=== PATIENT | female | born 1995 | race Caucasian/White ===

== ENCOUNTER 2016-03-25 16:17 | Emergency (ER) | payer OTHER ==
[2016-03-25 16:29] VITALS: RESP 18
--- NOTE | 2016-03-25 16:53 | ED ---
General Adult HPI - General Chief complaint: Altered Mental Status Stated complaint: Poss. Uti Time Seen by Provider: 03/25/16 16:36 Source: patient, RN notes reviewed Mode of arrival: wheelchair Limitations: no limitations - History of Present Illness Initial comments: 20-year-old female presents emergency Department from [facility] for confusion. Patient had a bout of confusion this morning that lasted approximately one hour. She states that she knew she was confused and disheveled. Patient states that they told her she had some bizarre behavior. Patient states that she no she was not dressed appropriately that she states that she had one sandal on, was not dressed well. Patient states that she also was slightly confused on what was happening. She states that she believes this is just from her withdrawal. Patient is on day 4 of rehab at [facility]. Patient states that she has no confusion now. She states she does feel improved. Patient denies fever, chills, headache, dizziness, chest pain, shortness breath, dysuria, hematuria. Patient states she is withdrawing from heroin primarily and some benzodiazepines. - Related Data Home Medications Medication Instructions Recorded Confirmed Acetaminophen Tab [Tylenol Tab] 650 mg PO Q4H PRN 03/25/16 03/25/16 Buprenorphine HCl [Subutex] 4 mg SL Q6H 03/25/16 03/25/16 [id number] 1 tab PO TID PRN 03/25/16 03/25/16 Chlorpheniramine Maleate 4 mg PO Q4H PRN 03/25/16 03/25/16 [Chlor-Trimeton] Ibuprofen [Motrin] 600 mg PO Q6H PRN 03/25/16 03/25/16 Mirtazapine [Remeron] 15 mg PO HS 03/25/16 03/25/16 Multivitamins, Thera [Multivitamin] 1 tab PO DAILY 03/25/16 03/25/16 Ondansetron HCl [Zofran] 8 mg PO Q6H PRN 03/25/16 03/25/16 Ondansetron [Zofran] 4 mg IM Q6H PRN 03/25/16 03/25/16 Propranolol [Inderal] 40 mg PO BID 03/25/16 03/25/16 Thiamine [Vitamin B-1] 100 mg PO DAILY 03/25/16 03/25/16 busPIRone HCl [Buspar] 10 mg PO TID PRN 03/25/16 03/25/16 cloNIDine HCL [Catapres] 0.1 mg PO Q4H 03/25/16 03/25/16 Allergies Allergy/AdvReac Type Severity Reaction Status Date / Time No Known Allergies Allergy Verified 03/25/16 16:49 Review of Systems ROS Statement: Those systems with pertinent positive or pertinent negative responses have been documented in the HPI. ROS Other: All systems not noted in ROS Statement are negative. Past Medical History Past Medical History: Asthma Additional Past Medical History / Comment(s): stopped using heroin 5 days ago History of Any Multi-Drug Resistant Organisms: None Reported Past Surgical History: No Surgical Hx Reported Smoking Status: Current every day smoker Past Alcohol Use History: None Reported, Rare Past Drug Use History: Heroin General Exam Limitations: no limitations General appearance: alert, in no apparent distress Head exam: Present: atraumatic, normocephalic, normal inspection Eye exam: Present: normal appearance, PERRL, EOMI. Absent: scleral icterus, conjunctival injection, periorbital swelling ENT exam: Present: normal exam, normal oropharynx, mucous membranes moist, TM's normal bilaterally, normal external ear exam Neck exam: Present: normal inspection, full ROM. Absent: tenderness, meningismus, lymphadenopathy Respiratory exam: Present: normal lung sounds bilaterally. Absent: respiratory distress, wheezes, rales, rhonchi, stridor Cardiovascular Exam: Present: regular rate, normal rhythm, normal heart sounds. Absent: systolic murmur, diastolic murmur, rubs, gallop, clicks GI/Abdominal exam: Present: soft, normal bowel sounds. Absent: distended, tenderness, guarding, rebound, rigid Neurological exam: Present: alert, oriented X3, CN II-XII intact, reflexes normal. Absent: motor sensory deficit Skin exam: Present: warm, dry, intact, normal color. Absent: rash Course Vital Signs 03/25/16 16:26 Temperature 98.3 F Pulse Rate 80 Respiratory 18 Rate Blood Pressure 109/74 O2 Sat by Pulse 97 Oximetry Medical Decision Making - Medical Decision Making 20-year-old female presented for possible confusion. Patient is awake alert and oriented 3. Patient lab work within normal. Patient has multiple drugs positive urine drug screen. Patient is in current rehab. Patient is exhibiting withdrawal symptoms. Patient will be discharged back to [facility]. - Lab Data Result diagrams: 03/25/16 17:30 03/25/16 17:30 Lab Results 03/25/16 03/25/16 03/25/16 Range/Units 17:30 17:30 17:30 WBC 5.1 (3.8-10.6) k/uL RBC 4.78 (3.80-5.40) m/uL Hgb 14.1 (11.4-16.0) gm/dL Hct 41.7 (34.0-46.0) % MCV 87.4 (80.0-100.0) fL MCH 29.4 (25.0-35.0) pg MCHC 33.7 (31.0-37.0) g/dL RDW 12.2 (11.5-15.5) % Plt Count 256 (150-450) k/uL Neutrophils % 56 % Lymphocytes % 33 % Monocytes % 7 % Eosinophils % 1 % Basophils % 1 % Neutrophils # 2.8 (1.3-7.7) k/uL Lymphocytes # 1.7 (1.0-4.8) k/uL Monocytes # 0.4 (0-1.0) k/uL Eosinophils # 0.1 (0-0.7) k/uL Basophils # 0.0 (0-0.2) k/uL PT (9.0-12.0) sec INR (<1.1) APTT (22.0-30.0) sec Sodium 144 (137-145) mmol/L Potassium 4.0 (3.5-5.1) mmol/L Chloride 105 (98-107) mmol/L Carbon Dioxide 24 (22-30) mmol/L Anion Gap 15 mmol/L BUN 11 (7-17) mg/dL Creatinine 0.76 (0.52-1.04) mg/dL Est GFR (MDRD) Af Amer >60 (>60 ml/min/1.73 sqM) Est GFR (MDRD) Non-Af >60 (>60 ml/min/1.73 sqM) Glucose 91 (74-99) mg/dL Calcium 9.7 (8.4-10.2) mg/dL Total Bilirubin 1.0 (0.2-1.3) mg/dL AST 22 (14-36) U/L ALT 40 (9-52) U/L Alkaline Phosphatase 89 (38-126) U/L Total Protein 8.3 H (6.3-8.2) g/dL Albumin 4.5 (3.5-5.0) g/dL Urine Color Yellow Urine Appearance Clear (Clear) Urine pH 6.0 (5.0-8.0) Ur Specific [place] 1.021 (1.001-1.035) Urine Protein Trace H (Negative) Urine Glucose (UA) Negative (Negative) Urine Ketones 2+ H (Negative) Urine Blood Negative (Negative) Urine Nitrate Negative (Negative) Urine Bilirubin Negative (Negative) Urine Urobilinogen <2.0 (<2.0) mg/dL Ur Leukocyte Esterase Negative (Negative) Urine Opiates Screen Detected H (NotDetected) Ur Oxycodone Screen Not Detected (NotDetected) Urine Methadone Screen Not Detected (NotDetected) Ur Propoxyphene Screen Not Detected (NotDetected) Ur Barbiturates Screen Not Detected (NotDetected) U Tricyclic Antidepress Not Detected (NotDetected) Ur Phencyclidine Scrn Not Detected (NotDetected) Ur Amphetamines Screen Detected H (NotDetected) U Methamphetamines Scrn Detected H (NotDetected) U Benzodiazepines Scrn Detected H (NotDetected) Urine Cocaine Screen Detected H (NotDetected) U Marijuana (THC) Screen Detected H (NotDetected) 03/25/16 Range/Units 17:30 WBC (3.8-10.6) k/uL RBC (3.80-5.40) m/uL Hgb (11.4-16.0) gm/dL Hct (34.0-46.0) % MCV (80.0-100.0) fL MCH (25.0-35.0) pg MCHC (31.0-37.0) g/dL RDW (11.5-15.5) % Plt Count (150-450) k/uL Neutrophils % % Lymphocytes % % Monocytes % % Eosinophils % % Basophils % % Neutrophils # (1.3-7.7) k/uL Lymphocytes # (1.0-4.8) k/uL Monocytes # (0-1.0) k/uL Eosinophils # (0-0.7) k/uL Basophils # (0-0.2) k/uL PT 11.3 (9.0-12.0) sec INR 1.1 (<1.1) APTT 22.5 (22.0-30.0) sec Sodium (137-145) mmol/L Potassium (3.5-5.1) mmol/L Chloride (98-107) mmol/L Carbon Dioxide (22-30) mmol/L Anion Gap mmol/L BUN (7-17) mg/dL Creatinine (0.52-1.04) mg/dL Est GFR (MDRD) Af Amer (>60 ml/min/1.73 sqM) Est GFR (MDRD) Non-Af (>60 ml/min/1.73 sqM) Glucose (74-99) mg/dL Calcium (8.4-10.2) mg/dL Total Bilirubin (0.2-1.3) mg/dL AST (14-36) U/L ALT (9-52) U/L Alkaline Phosphatase (38-126) U/L Total Protein (6.3-8.2) g/dL Albumin (3.5-5.0) g/dL Urine Color Urine Appearance (Clear) Urine pH (5.0-8.0) Ur Specific [place] (1.001-1.035) Urine Protein (Negative) Urine Glucose (UA) (Negative) Urine Ketones (Negative) Urine Blood (Negative) Urine Nitrate (Negative) Urine Bilirubin (Negative) Urine Urobilinogen (<2.0) mg/dL Ur Leukocyte Esterase (Negative) Urine Opiates Screen (NotDetected) Ur Oxycodone Screen (NotDetected) Urine Methadone Screen (NotDetected) Ur Propoxyphene Screen (NotDetected) Ur Barbiturates Screen (NotDetected) U Tricyclic Antidepress (NotDetected) Ur Phencyclidine Scrn (NotDetected) Ur Amphetamines Screen (NotDetected) U Methamphetamines Scrn (NotDetected) U Benzodiazepines Scrn (NotDetected) Urine Cocaine Screen (NotDetected) U Marijuana (THC) Screen (NotDetected) Disposition Clinical Impression: Polysubstance abuse, Acute drug withdrawal syndrome Disposition: HOME SELF-CARE Condition: Stable Instructions: Polysubstance Abuse (ED) Additional Instructions: Please return to the Emergency Department if symptoms worsen or any other concerns. Time of Disposition: 18:18
[2016-03-25 17:43] LABS: Basophils % (A) 1 %; CH 30.5; Eosinophils # (A) 0.1 k/uL (0-0.7); Eosinophils % (A) 1 %; HCT 41.7 % (34.0-46.0); HDW 3.08; HGB 14.1 gm/dL (11.4-16.0); Luc # (Auto) 0.14; Luc % (Auto) 3; Lymphocytes # (A) 1.7 k/uL (1.0-4.8); Lymphocytes % (A) 33 %; MCH 29.4 pg (25.0-35.0); MCHC 33.7 g/dL (31.0-37.0); MCV 87.4 fL (80.0-100.0); Mean Platelet Volume 7.2; Monocytes # (A) 0.4 k/uL (0-1.0); Monocytes % (A) 7 %; Neutrophils # (A) 2.8 k/uL (1.3-7.7); Neutrophils % (A) 56 %; RBC 4.78 m/uL (3.80-5.40); RDW 12.2 % (11.5-15.5); WBC 5.1 k/uL (3.8-10.6)
[2016-03-25 17:44] LABS: Appearance,Urine Clear (Clear); Bilirubin,Urine Negative (Negative); Glucose,Urine (UA) Negative (Negative); Ketones,Urine 2+ (Negative); Leukocyte Esterase,Urine Negative (Negative); Nitrite,Urine Negative (Negative); Protein,Urine Trace (Negative); Specific Gravity,Urine 1.021 (1.001-1.035); UA Billing (MACRO vs. MICRO) CHEM; Urobilinogen,Urine <2.0 mg/dL (<2.0)
[2016-03-25 17:54] LABS: ALT 40 U/L (9-52); AST 22 U/L (14-36); Alkaline Phosphatase 89 U/L (38-126); Anion Gap 15 mmol/L; Blood Urea Nitrogen 11 mg/dL (7-17); Calcium 9.7 mg/dL (8.4-10.2); Carbon Dioxide 24 mmol/L (22-30); Chloride 105 mmol/L (98-107); Glucose 91 mg/dL (74-99); Non-African American GFR(MDRD) >60 (>60 ml/min/1.73 sqM); Sodium 144 mmol/L (137-145); Total Protein 8.3 g/dL (6.3-8.2)
[2016-03-25 17:59] LABS: INR 1.1 (<1.1); Partial Thromboplastin Time 22.5 sec (22.0-30.0); Prothrombin Time 11.3 sec (9.0-12.0)
--- NOTE | 2016-03-25 18:04 | CT ---
EXAMINATION TYPE: CT brain wo con DATE OF EXAM: 03/25/2016 5:52 PM COMPARISON: NONE HISTORY: Patient complains of episode of confusion. CT DLP: 809.2 mGycm Automated exposure control for dose reduction was used. FINDINGS: The ventricles and sulci appear normal. There is no mass effect nor midline shift. There is no sign o f intracranial hemorrhage. Calvarium is intact. IMPRESSION: Normal unenhanced head CT scan.
--- NOTE | 2016-03-25 18:05 | XR ---
EXAMINATION TYPE: XR chest 2V DATE OF EXAM: 03/25/2016 5:58 PM COMPARISON: NONE HISTORY: Altered mental status TECHNIQUE: Frontal and lateral views of the chest are obtained. FINDINGS: Heart and mediastinum are normal. Lungs are clear. Diaphragm is normal. Bony thorax and so ft tissues appear normal. IMPRESSION: Normal chest.
[2016-03-25 18:36] VITALS: BP 114/61; PULSE 68; TEMP 97.8
== END 2016-03-25 18:42 | disposition home or self-care (01) ==
LOC: EC 16:17
DX: F19.939 Other psychoactive substance use, unspecified with withdrawal, unspecified (principal); F19.10 Other psychoactive substance abuse, uncomplicated; F17.200 Nicotine dependence, unspecified, uncomplicated; Z79.899 Other long term (current) drug therapy
CPT/HCPCS: 36415; 70450; 71020; 80053; 80306; 81003; 85025; 85610; 85730; 99285

== ENCOUNTER 2022-07-31 16:46 | Observation (INO) | payer OTHER ==
[2022-07-31] MEDS ORDERED: SODIUM CHLORIDE 0.9% 2,000 ML IV STA (17:08)
[2022-07-31 18:03] LABS: Anisocytosis Slight; Basophils % (A) 1 %; Eosinophils # (A) 0.1 k/uL (0-0.7); Eosinophils % (A) 3 %; HCT 34.6 % (34.0-46.0); HGB 10.7 gm/dL (11.4-16.0); Hypochromasia Slight; Lymphocytes # (A) 1.3 k/uL (1.0-4.8); Lymphocytes % (A) 36 %; MCH 23.8 pg (25.0-35.0); MCHC 31.1 g/dL (31.0-37.0); MCV 76.6 fL (80.0-100.0); Mean Platelet Volume 7.2; Microcytosis Slight; Monocytes # (A) 0.4 k/uL (0-1.0); Monocytes % (A) 11 %; Neutrophils # (A) 1.7 k/uL (1.3-7.7); Neutrophils % (A) 46 %; Platelet Count 231 k/uL (150-450); RBC 4.52 m/uL (3.80-5.40); RDW 16.6 % (11.5-15.5); WBC 3.7 k/uL (3.8-10.6)
[2022-07-31 18:16] LABS: ALT 19 U/L (4-34); AST 29 U/L (14-36); Acetaminophen <10.0 ug/mL; African American GFR (CKD) >90 (>60 ml/min/1.73 sqM); Albumin 3.8 g/dL (3.5-5.0); Alcohol <10 mg/dL; Alkaline Phosphatase 87 U/L (38-126); Anion Gap 11 mmol/L; Blood Urea Nitrogen 7 mg/dL (7-17); C Reactive Protein 3.9 mg/dL (<1.0); Calcium 8.8 mg/dL (8.4-10.2); Carbon Dioxide 28 mmol/L (22-30); Chloride 93 mmol/L (98-107); Glucose 74 mg/dL (74-99); Non-African American GFR(CKD) >90 (>60 ml/min/1.73 sqM); Potassium 3.6 mmol/L (3.5-5.1); Salicylate <1.0 mg/dL; Sodium 132 mmol/L (137-145); Total Bilirubin 0.6 mg/dL (0.2-1.3); Total Protein 7.4 g/dL (6.3-8.2)
--- NOTE | 2022-07-31 18:31 | XR ---
EXAMINATION TYPE: XR knee complete bilateral DATE OF EXAM: 07/31/2022 6:12 PM INDICATION: Patient age:Female; 27 years old; Reason for study: swelling; COMPARISON: None. TECHNIQUE: The Bilateral knee(s) were examined in Frontal, lateral and oblique projections. FINDINGS: There is swelling to the soft tissues of the right knee anteriorly just proximal to the k nee. No evidence of any acute osseous pathology, or joint effusion is noted. The left soft tissues ar e grossly unremarkable. IMPRESSION: 1. Large area of soft tissue swelling just proximal to the right knee in the anterior thigh. The lef t leg is without evidence for significant swelling. Correlate for history of trauma, findings could r epresent hematoma versus seroma versus other etiologies in the appropriate clinical setting.. Conside r MRI. 2. No evidence of fracture bilaterally.
[2022-07-31 18:37] VITALS: RESP 16
[2022-07-31 18:52] LABS: Erythrocyte Sedimentation Rate 46 mm/hr (0-20)
[2022-07-31] MEDS ORDERED: DEXTROSE 50% SYRINGE 50 ML IVP STA (19:00)
[2022-07-31] MEDS ORDERED: NALOXONE 0.4 MG/ML 1 ML VIAL IV PRN (19:08)
--- NOTE | 2022-07-31 19:08 | ED ---
Overdose HPI - General Chief Complaint: Overdose Stated Complaint: Overdose Time Seen by Provider: 07/31/22 16:49 Source: EMS Mode of arrival: EMS Limitations: altered mental status - History of Present Illness Initial Comments: 27-year-old female with past medical history of polysubstance abuse who presents to the emergency department from [facility]. Patient has a history of cocaine, heroin, Xanax, Suboxone, marijuana and methamphetamine abuse. Presented to [facility] today for rehab. In the triage finley the patient was overly sedated. States that she took a bar and a half of Xanax and used heroin earlier today before going in. She was too sedated to be admitted and therefore the patient was sent over to the hospital. He shouldn't has notable abrasion to the left knee with some overlying skin redness. She also has a significant kourtney int effusion on the right. No redness or pain with movement. She is on Keflex currently. States that she had her knee incised and drained at [facility] one month ago. Denies any increase in pain, swelling or redness. No fevers. No other alleviating, precipitating or modifying factors - Related Data Home Medications Medication Instructions Recorded Confirmed Apixaban [Eliquis] 5 mg PO BID 07/31/22 07/31/22 Baclofen [Lioresal] 20 mg PO BID 07/31/22 07/31/22 Buprenorphine HCl/Naloxone HCl 1 tab SUBLINGUAL BID 07/31/22 07/31/22 [Zubsolv 5.7-1.4 mg Tablet Sl] Ferrous Sulfate [Feosol] 325 mg PO DAILY 07/31/22 07/31/22 QUEtiapine [SEROquel] 25 mg PO BID 07/31/22 07/31/22 Rizatriptan Benzoate [Rizatriptan] 5 mg PO BID PRN 07/31/22 07/31/22 clonazePAM [KlonoPIN] 0.5 mg PO BID PRN 07/31/22 07/31/22 hydrOXYzine HCL [Hydroxyzine HCl] 25 mg PO DAILY 07/31/22 07/31/22 Allergies Allergy/AdvReac Type Severity Reaction Status Date / Time No Known Allergies Allergy Verified 07/31/22 19:05 Review of Systems ROS Statement: Those systems with pertinent positive or pertinent negative responses have been documented in the HPI. ROS Other: All systems not noted in ROS Statement are negative. Past Medical History Past Medical History: Asthma Additional Past Medical History / Comment(s): stopped using heroin 5 days ago History of Any Multi-Drug Resistant Organisms: None Reported Past Surgical History: No Surgical Hx Reported Smoking Status: Never smoker Past Alcohol Use History: None Reported, Rare Past Drug Use History: Heroin General Exam Limitations: altered mental status General appearance: lethargic, other (Will arouse to painful stimuli) Head exam: Present: atraumatic, normocephalic, normal inspection Eye exam: Present: normal appearance, PERRL, EOMI. Absent: scleral icterus, conjunctival injection, periorbital swelling ENT exam: Present: normal exam, mucous membranes moist Neck exam: Present: normal inspection. Absent: tenderness, meningismus, lymphadenopathy Respiratory exam: Present: normal lung sounds bilaterally. Absent: respiratory distress, wheezes, rales, rhonchi, stridor Cardiovascular Exam: Present: regular rate, normal rhythm, normal heart sounds. Absent: systolic murmur, diastolic murmur, rubs, gallop, clicks GI/Abdominal exam: Present: soft, normal bowel sounds. Absent: distended, tenderness, guarding, rebound, rigid Extremities exam: Present: full ROM, normal capillary refill, joint swelling (Patient has a large effusion to the right knee. There are some well-healed surgical incisions with no active drainage. No redness or warmth. Left knee has an overlying abrasion with some surrounding redness. No pustular drainage. No joint swelling. 2+ DP and PT pulses.). Absent: pedal edema, calf tenderness Back exam: Present: normal inspection Neurological exam: Present: altered, CN II-XII intact Psychiatric exam: Present: depressed, flat affect Skin exam: Present: warm, dry, intact, normal color. Absent: rash Course Vital Signs 07/31/22 07/31/22 07/31/22 17:09 17:40 17:45 Pulse Rate 113 H 112 H 112 H Respiratory 12 12 16 Rate Blood Pressure 117/71 114/65 111/68 O2 Sat by Pulse 100 100 97 Oximetry 07/31/22 07/31/22 07/31/22 18:00 18:15 18:30 Pulse Rate 107 H 110 H 112 H Respiratory 16 16 16 Rate Blood Pressure 105/61 114/70 116/74 O2 Sat by Pulse 97 98 98 Oximetry 07/31/22 07/31/22 07/31/22 19:00 19:15 19:30 Pulse Rate 110 H 102 H 104 H Respiratory 16 16 16 Rate Blood Pressure 108/67 105/69 101/63 O2 Sat by Pulse 97 97 97 Oximetry 07/31/22 07/31/22 08/01/22 21:45 22:00 00:41 Pulse Rate 101 H 109 H Respiratory 16 Rate Blood Pressure 97/54 93/56 O2 Sat by Pulse 100 Oximetry Medical Decision Making - Medical Decision Making Was pt. sent in by a medical professional or institution (, PA, INTELLIGENT SYSTEMS ENGINEER, urgent ca re, hospital, or senior care...) When possible be specific @ -[facility] Did you speak to anyone other than the patient for history (EMS, parent, family, police, friend...)? What history was obtained from this source @ -EMS Did you review nursing and triage notes (agree or disagree)? Why? @ -I reviewed and agree with nursing and triage notes Were old charts reviewed (outside hosp., previous admission, EMS record, old EKG, old radiological studies, urgent care reports/EKG's, senior care records)? Report findings @ -No old charts were reviewed Differential Diagnosis (chest pain, altered mental status, abdominal pain women, abdominal pain men, vaginal bleeding, weakness, fever, dyspnea, syncope, headache, dizziness, GI bleed, back pain, seizure, CVA, palpatations, mental health, musculoskeletal)? @ -Differential Altered Mental Status: Hypoglycemia, DKA, hypercapnia, ETOH, overdose, CO poisoning, trauma, myxedema coma, HTN encephalopathy, infection, encephalitis, psychosis, intercranial hemorrhage, hepatic encephalopathy, meningitis, CVA, this is not meant to be an all-inclusive list EKG interpreted by me (3pts min.). @ -EKG interpreted by me as a sinus tachycardia with a rate of 112. GA interval 157. QRS 95. QTC of 422. No acute ST segment elevations or depres sions X-rays interpreted by me (1pt min.). @ -Bilateral knee x-rays performed which demonstrates soft tissue swelling right-sided CT interpreted by me (1pt min.). @ -None done U/S interpreted by me (1pt. min.). @ -None done What testing was considered but not performed or refused? (CT, X-rays, U/S, labs)? Why? @ -None What meds were considered but not given or refused? Why? @ -None Did you discuss the management of the patient with other professionals (professionals i.e. , PA, INTELLIGENT SYSTEMS ENGINEER, lab, RT, psych nurse, web content & social media manager, division human resources manager, teacher, chief safety officer, field nurse case manager)? Give summary @ -I discussed the case with Ike Mcclellan from [facility] - significant soft tissue swelling however I do not feel that the patient has a joint effusion/septic joint Was smoking cessation discussed for >3mins.? @ -No Was critical care preformed (if so, how long)? @ -No Were there social determinants of health that impacted care today? How? (Homelessness, low income, unemployed, alcoholism, drug addiction, transportation, low edu. Level, literacy, decrease access to med. care, senior care, rehab)? @ - Patient is coming from rehab where she was checking herself and due to significant polysubstance abuse Was there de-escalation of care discussed even if they declined (Discuss DNR or withdrawal of care, Hospice)? DNR status @ -No What co-morbidities impacted this encounter? (DM, HTN, Smoking, COPD, CAD, Cancer, CVA, ARF, Chemo, Hep., AIDS, mental health diagnosis, sleep apnea, morbid obesity)? @ -None Was patient admitted / discharged? Hospital course, mention meds given and rout e, prescriptions, significant lab abnormalities, going to OR and other pertinent info. @ -Upon arrival patient was placed into room 11. A thorough history and physical exam was performed. Patient is significantly altered however will arouse to painful stimuli. IV is established. Laboratory studies were conducted. Bilateral knee x-rays are performed. Patient will be admitted for encephalopathy. I will consult or so for the right knee swelling. Spoke with Dr. Hart for admission Undiagnosed new problem with uncertain prognosis? @ -Yes Drug Therapy requiring intensive monitoring for toxicity (Heparin, Nitro, Ins ulin, Cardizem)? @ -No Were any procedures done? @ -No Diagnosis/symptom? @ -Acute polysubstance abuse, acute toxic encephalopathy, subacute right knee prepatellar swelling Uncomplicated (without systemic symptoms) or Complicated (systemic symptoms)? @ -Complicated Side effects of treatment? @ -ALLERGIC reaction Exacerbation, Progression, or Severe Exacerbation? @ -No Poses a threat to life or bodily function? How? (Chest pain, [place], DE, pneumonia, PE, COPD, DKA, ARF, appy, cholecystitis, CVA, Diverticulitis, Homicidal, Suicidal, threat to staff... and all critical care pts) @ -Yes, patient is significantly altered due to her polysubstance abuse which could lead to respiratory suppression - Lab Data Result diagrams: 07/31/22 17:24 07/31/22 17:24 Lab Results 07/31/22 07/31/22 07/31/22 Range/Units 17:24 17:24 17:24 WBC 3.7 L (3.8-10.6) k/uL RBC 4.52 (3.80-5.40) m/uL Hgb 10.7 L (11.4-16.0) gm/dL Hct 34.6 (34.0-46.0) % MCV 76.6 L (80.0-100.0) fL MCH 23.8 L (25.0-35.0) pg MCHC 31.1 (31.0-37.0) g/dL RDW 16.6 H (11.5-15.5) % Plt Count 231 (150-450) k/uL MPV 7.2 Neutrophils % 46 % Lymphocytes % 36 % Monocytes % 11 % Eosinophils % 3 % Basophils % 1 % Neutrophils # 1.7 (1.3-7.7) k/uL Lymphocytes # 1.3 (1.0-4.8) k/uL Monocytes # 0.4 (0-1.0) k/uL Eosinophils # 0.1 (0-0.7) k/uL Basophils # 0.0 (0-0.2) k/uL Manual Slide Review Performed Hypochromasia Slight Anisocytosis Slight Microcytosis Slight ESR 46 H (0-20) mm/hr Sodium (137-145) mmol/L Potassium (3.5-5.1) mmol/L Chloride (98-107) mmol/L Carbon Dioxide (22-30) mmol/L Anion Gap mmol/L BUN (7-17) mg/dL Creatinine (0.52-1.04) mg/dL Est GFR (CKD-EPI)AfAm (>60 ml/min/1.73 sqM) Est GFR (CKD-EPI)NonAf (>60 ml/min/1.73 sqM) Glucose (74-99) mg/dL Lactic Ac Sepsis Rflx Plasma Lactic Acid Ritesh (0.7-2.0) mmol/L Calcium (8.4-10.2) mg/dL Total Bilirubin (0.2-1.3) mg/dL AST (14-36) U/L ALT (4-34) U/L Alkaline Phosphatase (38-126) U/L C-Reactive Protein (<1.0) mg/dL Total Protein (6.3-8.2) g/dL Albumin (3.5-5.0) g/dL Urine HCG, Qual Not Detected (Not Detectd) Salicylates mg/dL Urine Opiates Screen Not Detected (NotDetected) Ur Oxycodone Screen Not Detected (NotDetected) Urine Methadone Screen Not Detected (NotDetected) Ur Propoxyphene Screen Not Detected (NotDetected) Acetaminophen ug/mL Ur Barbiturates Screen Not Detected (NotDetected) U Tricyclic Antidepress Not Detected (NotDetected) Ur Phencyclidine Scrn Not Detected (NotDetected) Ur Amphetamines Screen Not Detected (NotDetected) U Methamphetamines Scrn Not Detected (NotDetected) U Benzodiazepines Scrn Detected H (NotDetected) Urine Cocaine Screen Detected H (NotDetected) U Marijuana (THC) Screen Detected H (NotDetected) Serum Alcohol mg/dL 07/31/22 07/31/22 07/31/22 Range/Units 17:24 17:24 18:22 WBC (3.8-10.6) k/uL RBC (3.80-5.40) m/uL Hgb (11.4-16.0) gm/dL Hct (34.0-46.0) % MCV (80.0-100.0) fL MCH (25.0-35.0) pg MCHC (31.0-37.0) g/dL RDW (11.5-15.5) % Plt Count (150-450) k/uL MPV Neutrophils % % Lymphocytes % % Monocytes % % Eosinophils % % Basophils % % Neutrophils # (1.3-7.7) k/uL Lymphocytes # (1.0-4.8) k/uL Monocytes # (0-1.0) k/uL Eosinophils # (0-0.7) k/uL Basophils # (0-0.2) k/uL Manual Slide Review Hypochromasia Anisocytosis Microcytosis ESR (0-20) mm/hr Sodium 132 L (137-145) mmol/L Potassium 3.6 (3.5-5.1) mmol/L Chloride 93 L (98-107) mmol/L Carbon Dioxide 28 (22-30) mmol/L Anion Gap 11 mmol/L BUN 7 (7-17) mg/dL Creatinine 0.59 (0.52-1.04) mg/dL Est GFR (CKD-EPI)AfAm >90 (>60 ml/min/1.73 sqM) Est GFR (CKD-EPI)NonAf >90 (>60 ml/min/1.73 sqM) Glucose 74 (74-99) mg/dL Lactic Ac Sepsis Rflx Y Plasma Lactic Acid Ritesh 2.4 H* (0.7-2.0) mmol/L Calcium 8.8 (8.4-10.2) mg/dL Total Bilirubin 0.6 (0.2-1.3) mg/dL AST 29 (14-36) U/L ALT 19 (4-34) U/L Alkaline Phosphatase 87 (38-126) U/L C-Reactive Protein 3.9 H (<1.0) mg/dL Total Protein 7.4 (6.3-8.2) g/dL Albumin 3.8 (3.5-5.0) g/dL Urine HCG, Qual (Not Detectd) Salicylates <1.0 mg/dL Urine Opiates Screen (NotDetected) Ur Oxycodone Screen (NotDetected) Urine Methadone Screen (NotDetected) Ur Propoxyphene Screen (NotDetected) Acetaminophen <10.0 ug/mL Ur Barbiturates Screen (NotDetected) U Tricyclic Antidepress (NotDetected) Ur Phencyclidine Scrn (NotDetected) Ur Amphetamines Screen (NotDetected) U Methamphetamines Scrn (NotDetected) U Benzodiazepines Scrn (NotDetected) Urine Cocaine Screen (NotDetected) U Marijuana (THC) Screen (NotDetected) Serum Alcohol <10 mg/dL Disposition Clinical Impression: Benzodiazepine overdose, Opiate overdose, Swelling of right knee joint Disposition: ADMITTED IP TO THIS [facility] Condition: Serious Is patient prescribed a controlled substance at d/c from ED?: No Time of Disposition: 19:08 Decision to Admit Reason: Admit from EC Decision Date: 07/31/22 Decision Time: 19:08
[2022-07-31] MEDS ORDERED: SODIUM CHLORIDE 0.9% 1,000 ML IV SCH (19:15)
[2022-07-31] MEDS ORDERED: VANCOMYCIN IV PER PHARMACY 1 EACH MISC MISCELLANE SCH (21:45)
[2022-07-31] MEDS ORDERED: VANCOMYCIN 1,000 MG in SODIUM CHLORIDE 0.9% 250 ML IVPB ONE (22:00)
[2022-07-31 22:07] VITALS: BP 93/56
[2022-07-31 23:25] LABS: Cocaine Screen,Urine Detected (NotDetected); Opiate Screen,Urine Not Detected (NotDetected); Phencyclidine Screen,Urine Not Detected (NotDetected); Urn Cannabinoid Scrn Detected (NotDetected)
[2022-07-31 23:26] LABS: Amphetamine Screen,Urine Not Detected (NotDetected); Barbiturate Screen,Urine Not Detected (NotDetected); Benzodiazepines Screen,Urine Detected (NotDetected); Methadone Screen, Urine Not Detected (NotDetected); Oxycodone Screen, Urine Not Detected (NotDetected); Tricyclic Antidepressant,Urine Not Detected (NotDetected)
[2022-08-01 00:42] VITALS: PULSE 109
--- NOTE | 2022-08-01 01:08 | P.HPIM ---
History of Present Illness H&P Date: 07/31/22 The patient is a 27-year-old female with a PMH of polysubstance abuse who was sent in from [facility] the patient had presented to rehab. The patient states that she used heroin, Xanax, and cocaine earlier today, which she has a long-standing history of using. She was lethargic at the time of interview but was answering most questions appropriately. The patient denied any pain at the time of interview. She reports having her right knee drained at [facility] 1 month ago. She was noted to have a persistent right knee effusion. She further denied fever, chills, chest pain, shortness of nausea, vomiting. Knee x-rays in the emergency room revealed a large area of soft tissue swelling just proximal to the right knee in the anterior thigh. No obvious fractures were noted. EKG had revealed sinus tachycardia at [address]/T-wave changes noted as reviewed by me. Laboratory evaluation was remarkable for hemoglobin of 10.7, MCV 76.6, sodium 132, chloride 93, lactic acid 2.4, urine tox positive for benzodiazepines, cocaine, and marijuana. ED documentation reviewed and case discussed with ED provider. Review of systems: Pertinent positives and negatives as discussed in HPI, a complete review of systems was performed and all other systems are negative. Physical examination: Vital signs reviewed General: non toxic, no distress, appears at stated age, normal weight Derm: no unusual rashes/lesions, warm Head: atraumatic, normocephalic, symmetric Eyes: EOMI, no lid lag, anicteric sclera, pupils equal round reactive to light ENT: Nose and ears atraumatic Neck: No cervical lymphadenopathy, trachea midline, supple Mouth: no lip lesion, mucus membranes moist Cardiovascular: S1S2 reg, no murmur, positive dorsalis pedis pulse bilateral, no edema Lungs: CTA bilateral, no rhonchi, no rales, no accessory muscle use Abdominal: soft, nontender to palpation, no guarding Ext: muscle strength 3 out of 5 in all 4 extremities grossly, no gross muscle atrophy, no contractures, right knee effusion with healed incisions without overlying erythema with no tenderness or pain with passive movement Neuro: CN II-XI grossly intact, no gross focal neuro deficits Psych: Lethargic, answering questions appropriately and oriented to person, place, time Assessment: Overdose of multiple illicit substances Altered mental status, likely secondary to above Lactic acidosis Hypochloremic hyponatremia Microcytosis Leukopenia Right knee effusion Imaging: Knee x-rays in the emergency room revealed a large area of soft tissue swelling just proximal to the right knee in the anterior thigh. No obvious fractures were noted. EKG had revealed sinus tachycardia at [address]/T-wave changes noted as reviewed by me. Data Review: Laboratory evaluation was remarkable for hemoglobin of 10.7, MCV 76.6, sodium 132, chloride 93, lactic acid 2.4, urine tox positive for benzodiazepines, cocaine, and marijuana. Plan: Patient urged on the importance of cessation from substance use Continue with IV fluids with normal saline 130 mL/hr Monitor lactic acid for resolution Orthopedic surgery consulted for right knee effusion. Continue with vancomycin for now. Follow-up blood cultures Monitor BMP Obtain iron studies DVT prophylaxis: Heparin subcu The patient is admitted with an anticipated lessthan 2 midnight stay for evaluation of overdose CODE STATUS: Full Code Discussed with: Patient Anticipated discharge place: [facility] Past Medical History Past Medical History: Asthma Additional Past Medical History / Comment(s): stopped using heroin 5 days ago History of Any Multi-Drug Resistant Organisms: None Reported Past Surgical History: No Surgical Hx Reported Smoking Status: Never smoker Past Alcohol Use History: None Reported, Rare Past Drug Use History: Heroin - Past Family History Brother(s) Family Medical History: Unable to Obtain (Patient refused) Medications and Allergies Home Medications Medication Instructions Recorded Confirmed Type Apixaban [Eliquis] 5 mg PO BID 07/31/22 07/31/22 History Baclofen [Lioresal] 20 mg PO BID 07/31/22 07/31/22 History Buprenorphine HCl/Naloxone HCl 1 tab SUBLINGUAL BID 07/31/22 07/31/22 History [Zubsolv 5.7-1.4 mg Tablet Sl] Ferrous Sulfate [Feosol] 325 mg PO DAILY 07/31/22 07/31/22 History QUEtiapine [SEROquel] 25 mg PO BID 07/31/22 07/31/22 History Rizatriptan Benzoate [Rizatriptan] 5 mg PO BID PRN 07/31/22 07/31/22 History clonazePAM [KlonoPIN] 0.5 mg PO BID PRN 07/31/22 07/31/22 History hydrOXYzine HCL [Hydroxyzine HCl] 25 mg PO DAILY 07/31/22 07/31/22 History Allergies Allergy/AdvReac Type Severity Reaction Status Date / Time No Known Allergies Allergy Verified 07/31/22 19:05 Physical Exam Vitals: Vital Signs Pulse Resp BP Pulse Ox 07/31/22 19:30 104 H 16 101/63 97 07/31/22 19:15 102 H 16 105/69 97 07/31/22 19:00 110 H 16 108/67 97 07/31/22 18:30 112 H 16 116/74 98 07/31/22 18:15 110 H 16 114/70 98 07/31/22 18:00 107 H 16 105/61 97 07/31/22 17:45 112 H 16 111/68 97 07/31/22 17:40 112 H 12 114/65 100 07/31/22 17:09 113 H 12 117/71 100 Intake and Output 07/31/22 07/31/22 07/31/22 06:59 14:59 22:59 Other: Weight 54.431 kg Results CBC & Chem 7: 07/31/22 17:24 07/31/22 17:24 Labs: Abnormal Lab Results - Last 24 Hours (Table) 07/31/22 07/31/22 07/31/22 Range/Units 17:24 17:24 17:24 WBC 3.7 L (3.8-10.6) k/uL Hgb 10.7 L (11.4-16.0) gm/dL MCV 76.6 L (80.0-100.0) fL MCH 23.8 L (25.0-35.0) pg RDW 16.6 H (11.5-15.5) % ESR 46 H (0-20) mm/hr Sodium 132 L (137-145) mmol/L Chloride 93 L (98-107) mmol/L Plasma Lactic Acid Ritesh 2.4 H* (0.7-2.0) mmol/L C-Reactive Protein 3.9 H (<1.0) mg/dL
[2022-08-01] MEDS ORDERED: VANCOMYCIN 1,000 MG in SODIUM CHLORIDE 0.9% 250 ML IVPB SCH (06:00)
[2022-08-01] MEDS ORDERED: HEPARIN SODIUM,PORCINE/PF 5,000 UNIT/0.5 ML SYRINGE SQ SCH (08:00)
[2022-08-01] MEDS ORDERED: cloNIDine HCL 0.1 MG TAB PO PRN (08:41)
[2022-08-01] MEDS ORDERED: hydrOXYzine HCL 50 MG/ML 1 ML VIAL IM PRN (08:43)
[2022-08-01] MEDS ORDERED: KETOROLAC 15 MG/ML 1 ML VIAL IM PRN (08:44)
--- NOTE | 2022-08-01 10:57 | P.DS ---
Providers Date of admission: 07/31/22 19:08 Expected date of discharge: 08/01/22 Attending physician: Letitia Hart MD Consults: 07/31/22 19:08 Consult Physician Urgent Consulting Provider: Alexis Duron Consult Reason/Comments: right knee swelling, hx ivda Do you want consulting provider notified?: Yes Primary care physician: Stated None Hospital Course: Hospital Diagnosis: LEFT AGAINST MEDICAL ADVICE Overdose of multiple ilicit medications Toxic metabolic encephalopathy Large right knee effusion, concerns for spetic arthritis Anemia, hyponatremia, lactic acidosis Hospital Course: Patient is a 27-year-old female with a history of polysubstance abuse and septic arthritis of the right knee who presented to the ER from [facility] due to altered mentation. In the ER she underwent extensive evaluation. Knee x-ray revealed large soft tissue swelling just proximal to the right knee in the anterior thigh with no obvious fractures, labs were remarkable for hemoglobin of 10.7, sodium 132, lactic acid 2.4, and urine tox positive for benzos, cocaine, and marijuana. There were concerns for septic arthritis of her right knee. She was started on vancomycin and arrangements are made for admission. Orthopedic surgery was consulted and the patient was awaiting formal evaluation. She expressed wanting to leave AGAINST MEDICAL ADVICE. I went on to the ER and explained her that we are concerned that her right knee was infected especially with her history of intervenous drug use. She reports that she has a history of an infection in that right knee in the past and had completed a course of IV antibiotics and was recently discharged home from [facility] on oral antibiotics. She was requesting to be medically cleared for discharge to [facility]. I explained her that I was unable to do so unless I can verify that her knee had been adequately worked up and treated at [facility] with a appropriate plan in place for follow-up. She was initially in agreement with this plan. She expressed that she wanted to go back to [facility] to pursue treatment. She endorsed withdrawal symptoms from heroin and benzodiazepines. I offered her symptomatic non-opiate treatment with Suboxone, which she states she is not taking currently, Toradol, Catapres, and Vistaril. Those orders were pl aced. While waiting to verify this information the patient left her ER room and went and sat in the lobby and was fully dressed and calling [facility]. We did obtain copies from [facility] but at that point in time there was no significant knee swelling noted and she was treated for cellulitis. Patient elected to leave AGAINST MEDICAL ADVICE. She does have oral Keflex at home that she will be completing what she picks it up from [facility]. I did express to her during our meeting that is appropriate to seek medical treatment for septic arthritis as this can be a life threatening condition, she expressed understanding but felt as though her knee has been adequately treated and she is appropriate to continue oral Keflex. Vital signs reviewed and stable. General: nontoxic, no distress, appears at stated age Cardiovascular: S1S2 reg, no murmur, positive posterior tibial pulse bilateral, Lungs: CTA bilateral, no rhonchi, no rales , no accessory muscle use Ext: no gross muscle atrophy, large effusion right knee, no contractures Neuro: CN II-XI grossly intact, no focal neuro deficits Psych: Alert, oriented 3, clear thought process, appropriate affect A total of 35 minutes of time were spent preparing this complex discharge summary and attempting to convience the patient to stay for treatment. Patient left against medical advice on 08/01/22 This dictation was prepared using [employer] voice recognition software. Though every attempt is made to correct errors during during dictation some may still exist. Patient Condition at Discharge: Undetermined Plan - Discharge Summary New Discharge Prescriptions: No Action clonazePAM [KlonoPIN] 0.5 mg PO BID PRN PRN Reason: Anxiety Rizatriptan Benzoate [Rizatriptan] 5 mg PO BID PRN PRN Reason: Migraine Headache Ferrous Sulfate [Feosol] 325 mg PO DAILY Apixaban [Eliquis] 5 mg PO BID Buprenorphine HCl/Naloxone HCl [Zubsolv 5.7-1.4 mg Tablet Sl] 1 tab SUBLINGUAL BID hydrOXYzine HCL [Hydroxyzine HCl] 25 mg PO DAILY QUEtiapine [SEROquel] 25 mg PO BID Baclofen [Lioresal] 20 mg PO BID Discharge Medication List Apixaban [Eliquis] 5 mg PO BID 07/31/22 [History] Baclofen [Lioresal] 20 mg PO BID 07/31/22 [History] Buprenorphine HCl/Naloxone HCl [Zubsolv 5.7-1.4 mg Tablet Sl] 1 tab SUBLINGUAL BID 07/31/22 [History] Ferrous Sulfate [Feosol] 325 mg PO DAILY 07/31/22 [History] QUEtiapine [SEROquel] 25 mg PO BID 07/31/22 [History] Rizatriptan Benzoate [Rizatriptan] 5 mg PO BID PRN 07/31/22 [History] clonazePAM [KlonoPIN] 0.5 mg PO BID PRN 07/31/22 [History] hydrOXYzine HCL [Hydroxyzine HCl] 25 mg PO DAILY 07/31/22 [History] Follow up Appointment(s)/Referral(s): None,Stated [Primary Care Provider] - 1-2 days Discharge Disposition: LEFT AGAINST MEDICAL ADVICE
--- NOTE | 2022-08-01 11:09 | P.CNOR ---
History of Present Illness - HPI Consult date: 08/01/22 Consult reason: other (Right knee effusion) History of present illness: Patient is a 27-year-old female who initially presented to [facility] on 07/31/2022 and transferred from [facility]. Patient apparently was reported to rehab today, she has a known history of probably drug abuse. Patient had significant altered mental status and was brought to the hospital for further evaluation. The patient on Xanax, [place] and cocaine earlier that day. Patient's exam was very limited due to her altered mental status. It was no patient had a very swollen right knee, partial lab test also demonstrated elevated ESR and CRP, there was concern for infection based on those labs. Patient's exam was very benign. Our orthopedic team was consulted regarding this patient, I was able to speak to the ER physician on 07/31/2022. There was low concern for infection involving the bilateral knees. There was notable effusion on the right knee, there is an abrasion over the left knee. There was no pain with range of motion, there was no increase in skin temperature, signs of redness or drainage. Apparently there is been a previous surgery to the right knee, there was possibly this was done at [facility], seemed like an arthroscopy type procedure. When reviewing internal medicine's note, patient states that she had received IV antibiotics and [facility] for an infection of her knee. Very difficult to determine the exact nature and timeframe of an inf ection and surgical procedure Patient was made nothing by mouth on 07/31/2022 after midnight, I did place the patient on prophylactic IV antibiotics with a consult for infectious disease. Patient was also boarded for an I&D procedure of the bilateral knees. Patient was evaluated on 08/01/2022 at bedside in the emergency room. Patient was still very somnolent and it was very difficult to achieve a review of systems in [facility]. Patient was very adamant not having surgery at this hospital on a be transferred to [facility] for further care. I did ask me to the patient that we would speak with internal medicine regarding the patient's case to come up with her best option of treatment. I advised she remain nothing by mouth with possibility of orthopedic surgery later today. Review of Systems Constitutional: Reports as per HPI Past Medical History Past Medical History: Asthma Additional Past Medical History / Comment(s): stopped using heroin 5 days ago History of Any Multi-Drug Resistant Organisms: None Reported Past Surgical History: No Surgical Hx Reported Smoking Status: Never smoker Past Alcohol Use History: None Reported, Rare Past Drug Use History: Heroin - Past Family History Brother(s) Family Medical History: Unable to Obtain (Patient refused) Medications and Allergies Home Medications Medication Instructions Recorded Confirmed Type Apixaban [Eliquis] 5 mg PO BID 07/31/22 07/31/22 History Baclofen [Lioresal] 20 mg PO BID 07/31/22 07/31/22 History Buprenorphine HCl/Naloxone HCl 1 tab SUBLINGUAL BID 07/31/22 07/31/22 History [Zubsolv 5.7-1.4 mg Tablet Sl] Ferrous Sulfate [Feosol] 325 mg PO DAILY 07/31/22 07/31/22 History QUEtiapine [SEROquel] 25 mg PO BID 07/31/22 07/31/22 History Rizatriptan Benzoate [Rizatriptan] 5 mg PO BID PRN 07/31/22 07/31/22 History clonazePAM [KlonoPIN] 0.5 mg PO BID PRN 07/31/22 07/31/22 History hydrOXYzine HCL [Hydroxyzine HCl] 25 mg PO DAILY 07/31/22 07/31/22 History Allergies Allergy/AdvReac Type Severity Reaction Status Date / Time No Known Allergies Allergy Verified 07/31/22 19:05 Physical Examination Right lower extremity: Well-healed arthroscopy incisions over the medial and lateral joint line along the suprapatellar region. No erythema or drainage appreciated. There is an obvious effusion present on the knee Passive and active range of motion of the knee as well as to include flexion and extension reproduces no significant pain. Plantar flexion, dorsiflexion, EHL, FHL are intact. Sensory exam to light touch is intact throughout the extremity Dorsalis pedis pulses 2+ Left lower extremity: I was present on the knee. There is a abrasion over the anterior aspect of the knee, there is no significant erythema present. There is no significant tenderness with palpation surrounding the knee. Painless range of motion is appreciated with both active and passive flexion and extension of the knee. Plantar flexion, dorsiflexion, EHL, FHL are intact Sensory exam to light touch is intact throughout the extremity Dorsalis pedis pulses 2+ Results - Labs Labs: Abnormal Lab Results - Last 24 Hours (Table) 07/31/22 07/31/22 07/31/22 Range/Units 17:24 17:24 17:24 WBC 3.7 L (3.8-10.6) k/uL Hgb 10.7 L (11.4-16.0) gm/dL MCV 76.6 L (80.0-100.0) fL MCH 23.8 L (25.0-35.0) pg RDW 16.6 H (11.5-15.5) % ESR 46 H (0-20) mm/hr Sodium 132 L (137-145) mmol/L Chloride 93 L (98-107) mmol/L Plasma Lactic Acid Ritesh (0.7-2.0) mmol/L C-Reactive Protein 3.9 H (<1.0) mg/dL U Benzodiazepines Scrn Detected H (NotDetected) Urine Cocaine Screen Detected H (NotDetected) U Marijuana (THC) Screen Detected H (NotDetected) 07/31/22 Range/Units 17:24 WBC (3.8-10.6) k/uL Hgb (11.4-16.0) gm/dL MCV (80.0-100.0) fL MCH (25.0-35.0) pg RDW (11.5-15.5) % ESR (0-20) mm/hr Sodium (137-145) mmol/L Chloride (98-107) mmol/L Plasma Lactic Acid Ritesh 2.4 H* (0.7-2.0) mmol/L C-Reactive Protein (<1.0) mg/dL U Benzodiazepines Scrn (NotDetected) Urine Cocaine Screen (NotDetected) U Marijuana (THC) Screen (NotDetected) H & H 07/31/22 Range/Units 17:24 Hgb 10.7 L (11.4-16.0) gm/dL Hct 34.6 (34.0-46.0) % Result Diagrams: 07/31/22 17:24 07/31/22 17:24 - Diagnostic results Knee x-ray: report reviewed, image reviewed (AP, lateral and oblique views reviewed along with reports of the bilateral knees. No acute fractures or dislocations, no foreign bodies. Notable joint effusion on the right knee) Assessment and Plan Assessment: Right knee effusion Possible septic right knee arthropathy history of likely septic arthropathy, status post likely knee arthroscopy with washout Left knee abrasion Elevated CRP and SED rate Polysubstance abuse Other medical comorbidities Plan: I was able to discuss the case, this including both physical exam findings and imaging studies my attending Dr. Duron. She'll conversation was had on 07/31/2022 with likely surgical intervention. I then discussed the case with him after seeing the patient on 08/01/2022. I did inform the patient that I would be speaking with both internal medicine doctor in my attending physician regarding possible options for treatment. This also to include a possible transfer to a different facility. Patient was notified to remain nothing by mouth due to the surgical intervention later today. I was notified by the internal medicine doctor later in the morning that the patient did leave AMA. Time with Patient: Less than 30
[2022-08-01] MEDS ORDERED: VANCOMYCIN TROUGH DUE 1 EACH MISC MISCELLANE ONE (21:00)
== END 2022-08-01 09:58 | disposition left against medical advice (07) ==
LOC: EC 16:46 → 4SSUR 19:08
PROVIDERS: ADMIT Internal Medicine; ATTEND Internal Medicine
DX: T42.4X1A Poisoning by benzodiazepines, accidental (unintentional), initial encounter (principal); T40.601A Poisoning by unspecified narcotics, accidental (unintentional), initial encounter; G92.8 Other toxic encephalopathy; M25.461 Effusion, right knee; S80.212A Abrasion, left knee, initial encounter; R79.82 Elevated C-reactive protein (CRP); E87.1 Hypo-osmolality and hyponatremia; E87.20 Acidosis, unspecified; R70.0 Elevated erythrocyte sedimentation rate; D72.819 Decreased white blood cell count, unspecified; D64.9 Anemia, unspecified; F14.10 Cocaine abuse, uncomplicated; F15.10 Other stimulant abuse, uncomplicated; F11.10 Opioid abuse, uncomplicated; F13.10 Sedative, hypnotic or anxiolytic abuse, uncomplicated; Z53.29 Procedure and treatment not carried out because of patient's decision for other reasons; Z79.01 Long term (current) use of anticoagulants; Z79.899 Other long term (current) drug therapy
CPT/HCPCS: 96361; 96365; 96366 ×2; 96375; 99285; 36415; 93005; 80053; 85652; 83605; 85025; 86140; 81025; 87040; 80306; 80143; 80179; 73562; G0378 ×2; G0480; J3370; 80320

== ENCOUNTER 2022-10-23 16:44 | Emergency (ER) | payer OTHER ==
[2022-10-23 17:10] VITALS: RESP 18; TEMP 98.1
--- NOTE | 2022-10-23 17:25 | ED ---
Extremity Problem HPI - General Chief complaint: Extremity Problem,Nontraumatic Stated complaint: Left leg pain Time Seen by Provider: 10/23/22 16:52 Source: patient, EMS Mode of arrival: EMS Limitations: no limitations - History of Present Illness Initial comments: This patient is 27-year-old woman transferred here from [facility] concerns of possible DVT. The patient gives history of DVT and states that she had been prescribed oral anticoagulant. The initial DVT was diagnosed in March. The patient states that she subsequently stopped taking the anticoagulant because she was having concerns that her hair was falling out in relation to the medicine. She went to [facility] today for rehabilitation from heroin and they noticed swelling of her leg. Patient states this been going on since Sunday. She denies any symptoms related to it, no leg pain. No chest pain, palpitations, dyspnea, cough or hemoptysis. MD Complaint: extremity swelling Onset/Timin -: days(s) Location: left History of Same: Yes Radiation: none Severity scale (1-10): 0 Consistency: constant Improves with: nothing Worsens with: nothing Associated Symptoms: denies other symptoms - Related Data Home Medications Medication Instructions Recorded Confirmed Apixaban [Eliquis] 5 mg PO BID 07/31/22 07/31/22 Baclofen [Lioresal] 20 mg PO BID 07/31/22 07/31/22 Buprenorphine HCl/Naloxone HCl 1 tab SUBLINGUAL BID 07/31/22 07/31/22 [Zubsolv 5.7-1.4 mg Tablet Sl] Ferrous Sulfate [Feosol] 325 mg PO DAILY 07/31/22 07/31/22 QUEtiapine [SEROquel] 25 mg PO BID 07/31/22 07/31/22 Rizatriptan Benzoate [Rizatriptan] 5 mg PO BID PRN 07/31/22 07/31/22 clonazePAM [KlonoPIN] 0.5 mg PO BID PRN 07/31/22 07/31/22 hydrOXYzine HCL [Hydroxyzine HCl] 25 mg PO DAILY 07/31/22 07/31/22 Allergies Allergy/AdvReac Type Severity Reaction Status Date / Time amoxicillin AdvReac Mild Rash/Hives Verified 10/23/22 17:11 Review of Systems ROS Statement: Those systems with pertinent positive or pertinent negative responses have been documented in the HPI. ROS Other: All systems not noted in ROS Statement are negative. Constitutional: Denies: fever, chills, weakness Respiratory: Denies: cough, dyspnea Cardiovascular: Reports: edema. Denies: chest pain, palpitations, syncope Gastrointestinal: Denies: abdominal pain Genitourinary: Denies: dysuria, frequency, hematuria, abnormal menses Musculoskeletal: Denies: back pain Skin: Denies: rash Neurological: Denies: headache, weakness Past Medical History Past Medical History: Asthma Additional Past Medical History / Comment(s): stopped using heroin 5 days ago History of Any Multi-Drug Resistant Organisms: None Reported Past Surgical History: No Surgical Hx Reported Smoking Status: Never smoker Past Alcohol Use History: None Reported, Rare Past Drug Use History: Heroin - Past Family History Brother(s) Family Medical History: Unable to Obtain (Patient refused) General Exam Limitations: no limitations General appearance: alert, in no apparent distress Head exam: Present: atraumatic, normocephalic Eye exam: Present: normal appearance. Absent: scleral icterus, conjunctival injection Neck exam: Present: normal inspection, full ROM Respiratory exam: Present: normal lung sounds bilaterally. Absent: respiratory distress, wheezes, rales, rhonchi, stridor Cardiovascular Exam: Present: regular rate, normal rhythm, normal heart sounds. Absent: systolic murmur, diastolic murmur, rubs, gallop GI/Abdominal exam: Present: soft. Absent: distended, tenderness, guarding, rebound, rigid, mass Extremities exam: Present: normal inspection, normal capillary refill, pedal edema ( left lower leg swelling. No tenderness. No Homans sign or cord). Absent: calf tenderness Back exam: Present: normal inspection. Absent: CVA tenderness (R), CVA tenderness (L) Neurological exam: Present: alert. Absent: motor sensory deficit Skin exam: Present: warm, dry, intact, normal color. Absent: rash Course Vital Signs 10/23/22 10/23/22 16:58 19:38 Temperature 98.1 F Pulse Rate 105 H 99 Respiratory 18 18 Rate Blood Pressure 119/79 110/73 O2 Sat by Pulse 100 98 Oximetry Medical Decision Making - Medical Decision Making This patient is 27-year-old woman sent here from [facility] to have evaluation of leg edema. The patient had duplex Doppler which was negative for DVT. I patient also had EPS evaluation related to mood disorder symptoms. The patient has been cleared to continue rehabilitation at [facility] and will be discharged back there. Was pt. sent in by a medical professional or institution (, [facility], BIOINFORMATICS COMPUTER SCIENTIST, urgent care, hospital, or jail...) When possible be specific @ -This patient sent from [facility] rehabilitation Did you speak to anyone other than the patient for history (EMS, parent, family, police, friend...)? What history was obtained from this source @ -[No] Did you review nursing and triage notes (agree or disagree)? Why? @ -[I reviewed and agree with nursing and triage notes] Were old charts reviewed (outside hosp., previous admission, EMS record, old EKG, old radiological studies, urgent care reports/EKG's, jail records)? Report findings @ -[No old charts were reviewed] Differential Diagnosis (chest pain, altered mental status, abdominal pain women, abdominal pain men, vaginal bleeding, weakness, fever, dyspnea, syncope, headache, dizziness, GI bleed, back pain, seizure, CVA, palpatations, mental health, musculoskeletal)? @ -[Differential diagnosis of leg edema includes: Leg infection, DVT, lymphedema, kidney disease, liver disease, congestive heart failure, other osmotic abnormalities, amongst other conditions EKG interpreted by me (3pts min.). @ - X-rays interpreted by me (1pt min.). @ -[None done] CT interpreted by me (1pt min.). @ -[None done] U/S interpreted by me (1pt. min.). @ -[None done] What testing was considered but not performed or refused? (CT, X-rays, U/S, labs)? Why? @ -[None] What meds were considered but not given or refused? Why? @ -[None] Did you discuss the management of the patient with other professionals (professionals i.e. , [facility], BIOINFORMATICS COMPUTER SCIENTIST, lab, RT, psych nurse, home health care social worker, internet marketer, teacher, police officer crime prevention, counseling case manager)? Give summary @ -[Case discussed with EPS personnel Was smoking cessation discussed for >3mins.? @ -[No] Was critical care preformed (if so, how long)? @ -[No] Were there social determinants of health that impacted care today? How? (Homelessness, low income, unemployed, alcoholism, drug addiction, transportation, low edu. Level, literacy, decrease access to med. care, shelter, rehab)? @ -[No] Was there de-escalation of care discussed even if they declined (Discuss DNR or withdrawal of care, Hospice)? DNR status @ -[No] What co-morbidities impacted this encounter? (DM, HTN, Smoking, COPD, CAD, Cancer, CVA, ARF, Chemo, Hep., AIDS, mental health diagnosis, sleep apnea, morbid obesity)? @ -[Substance abuse disorder Was patient admitted / discharged? Hospital course, mention meds given and route, prescriptions, significant lab abnormalities, going to OR and other pertinent info. @ -[See above, patient discharged back to the rehabilitation Center Undiagnosed new problem with uncertain prognosis? @ -[No] Drug Therapy requiring intensive monitoring for toxicity (Heparin, Nitro, Insulin, Cardizem)? @ -[No] Were any procedures done? @ -[No] Diagnosis/symptom? @ -[Acute leg edema Mood disorder likely due to substance abuse disorder Acute, or Chronic, or Acute on Chronic? @ -[Acute Uncomplicated (without systemic symptoms) or Complicated (systemic symptoms)? @ -[Uncomplicated Side effects of treatment? @ -[No] Exacerbation, Progression, or Severe Exacerbation? @ -[No] Poses a threat to life or bodily function? How? (Chest pain, [place], [place], pneumonia, PE, COPD, DKA, ARF, appy, cholecystitis, CVA, Diverticulitis, Homicidal, Suicidal, threat to staff... and all critical care pts) @ -[Unlikely Disposition Clinical Impression: Leg edema, left Disposition: HOME SELF-CARE Condition: Good Instructions (If sedation given, give patient instructions): Leg Edema (ED) Is patient prescribed a controlled substance at d/c from ED?: No Referrals: None,Stated [Primary Care Provider] - 1-2 days
--- NOTE | 2022-10-23 18:34 | US ---
EXAMINATION TYPE: US venous doppler duplex LE LT DATE OF EXAM: 10/23/2022 6:16 PM COMPARISON: NONE CLINICAL INDICATION: Female, 27 years old with history of swelling, history of DVT; Hx of DVT in Mar 2022 in lt leg. Pt states she has not noticed any swelling today SIDE PERFORMED: Left TECHNIQUE: The lower extremity deep venous system is examined utilizing real time linear array sonog patric with graded compression, doppler sonography and color-flow sonography. VESSELS IMAGED: Common Femoral Vein Deep Femoral Vein Greater Saphenous Vein * Femoral Vein Popliteal Vein Small Saphenous Vein * Proximal Calf Veins (* superficial vessels) Left Leg: Groin limited due to open wound. Vessels visualized appear wnl IMPRESSION: Grayscale, color doppler, spectral doppler imaging performed of the deep veins of the lo wer extremities. There is normal flow, compressibility, vascular waveforms.
[2022-10-23 19:39] VITALS: BP 110/73; PULSE 99
== END 2022-10-23 22:28 | disposition home or self-care (01) ==
LOC: EEVIPCON 16:44 → EC 16:44
DX: R60.0 Localized edema (principal); J45.909 Unspecified asthma, uncomplicated; F15.90 Other stimulant use, unspecified, uncomplicated; Z88.0 Allergy status to penicillin
CPT/HCPCS: 82075; 99284